=== PATIENT | female | born 1990 | race Caucasian/White ===

== ENCOUNTER 2019-04-18 13:13 | Inpatient (IN) | payer OTHER ==
[~2019-04-18] VITALS: Ht 165.1 cm; Wt 56.0 kg
[~2019-04-18 13:13] MED LIST: HUMI SC; HUMI SQ; INSR; LANTI SQ
--- NOTE | 2019-04-18 13:26 | NUR ---
PER MEDIC MOTHER FOUND PT IN A MOTEL LOOKING LETHARGIC. PER MEDIC BG OVER 500. PER MEDIC PT STS THAT PT IS NOT COMPLIANT WITH MEDICATIONS. PER PT SHE FEELS DIZZY WITH NAUSEA AND VOMITING. PT ADMITS NOT TAKING MEDICATIONS DUE TO NOT BEING ABLE TO GET THEM. PT IS ACTIVELY VOMTING. PER MEDIC 350CC BOLUS. PT IS ALERT AND ORIENTED, WITH LETHARGIC SPEACH. NOTED WOUND ON BOTTOM OF RIGHT FOOT. PER MEDIC 20G LT AC. PT STS SHE DENIES ALCOHOL OR DRUG USE. DR. HOANG AT BEDSIDE FOR MSE. PT STS SHE IS HAVING "ALL OVER PAIN", GENERALIZED ABDOMINAL PAIN. VSS. RESP E/U. NO DISTRESS NOTED. WILL CONTINUE TO MONITOR.
[2019-04-18 14:05] LABS: BASOPHIL % 0.4 % (0-2)
[2019-04-18 14:06] LABS: RED CELL DISTRIBUTION WIDTH 21.9 % (11.5-14.5)
[2019-04-18 14:08] LABS: PLATELET COUNT 549 x10^3mcL (130-400)
[2019-04-18 14:17] LABS: ALKALINE PHOSPHATASE 137 U/L (46-116); ALT/SGPT 13 U/L (14-59); AST/SGOT 8 U/L (15-37); BILIRUBIN TOTAL 0.44 mg/dL (0.20-1.00); CARBON DIOXIDE 11.6 mmol/L (21-32); CHLORIDE SERUM 99 mmol/L (98-107); CREATININE SERUM 0.7 mg/dL (0.6-1.0); GFR1 > 60 mL/min; LIPASE 149 IU/L (73-393); POTASSIUM SERUM 4.4 mmol/L (3.5-5.1); SODIUM SERUM 132 mmol/L (136-145)
[2019-04-18 14:23] LABS: ALBUMIN 1.5 g/dL (3.4-5.0); TOTAL PROTEIN, SERUM 5.2 g/dL (6.4-8.2)
[2019-04-18 14:24] LABS: GLUCOSE SERUM 486 mg/dL (74-106)
--- NOTE | 2019-04-18 14:49 | NUR ---
PT RETURNED FROM CT.
--- NOTE | 2019-04-18 15:40 | NUR ---
PT IN POSITION OF COMFORT. PT EADSLIY AROUSABLE. RESP E/U. PT STS SHE IS JUST TIRED. VSS. WILL CONTINUE TO MONITOR. MEDICATED ORDERED.
--- NOTE | 2019-04-18 16:00 | NUR ---
BG 359 DR. HOANG MADE AWARE. VSS. NO DSITRESS NOTED. RESP E/U. WILL CONTINUE TO MONITOR.
--- NOTE | 2019-04-18 16:53 | NUR ---
EKG IN PROGRESS. REPORT GIVEN TO NEDA OLIVER TO ASSUME CARE OF PT.
--- NOTE | 2019-04-18 17:05 | NUR ---
TELEPHONED IPG'S EXCHANGE AND LEFT MESSAGE FOR DR WOOD FOR RETURN CALL.
--- NOTE | 2019-04-18 17:07 | NUR ---
SPOKE WITH DR WOOD REGARDING ADMISSION ORDERS. DR WOOD STATED THAT HE IS WORKING ON THEM. WILL AWAIT NEW ORDERS.
--- NOTE | 2019-04-18 17:14 | NUR ---
PT TAKEN TO ICU WITH MELODY FRANKLIN EMT. VSS.
--- NOTE | 2019-04-18 17:30 | NUR ---
RC'D PT FROM ED VIA [facility] WITH NURSE PRESENT AT BEDSIDE. PT A/A/O/X4, SPEECH SLOW. PT REPORTS SLIGHT PECK/DIZZINESS. PT LETHARGIC BUT RESPONDS TO VERBAL COMMANDS AND ABLE TO MAKE NEEDS KNOWN. NO EENT DRAINAGE NOTED. RESPIRATIONS EQUAL AND UNLABORED. LUNGS CTA. ON RA, DENIES SOB. O2 SAT 100%, NO RESP DISTRESS. SINUS TACH ON RAND CEMENTER. S1S2 AUSCULTATED. PT DENIES CP. RC'D PT ON INSULIN DRIP INFUSING HUMULIN R @5.5 PER PROTOCOL, WILL ADJUST DRIP ACCORDINGLY PER ACCUCHECKS AND PROTOCOL. PALP PULSEA, NO EDEMA NOTED. CAP REFILL <3. GENERALIZED WEAKNESS, LETHARGIC. ABDOMEN FLAT AND SOFT. HYPOACTIVE BS. PT REPORTED NAUSEA PRIOR TO ARRIVAL TO ICU FLOOR AND RC'D ZOFRAN IVP, DENIES NAUSEA/EMESIS AT THIS TIME. LAST BM EARLIER THIS AM, NORMAL FOR PT. PT VOIDS FREELY, DENIES BURNING WITH URINATION. OPEN WOUND NOTED TO NATHAN ALICEA. BED IN LOWEST POSITION. CALL LIGHT IN REACH. WILL CONT TO MONITOR
[2019-04-18 18:06] VITALS: BP 90/53
[2019-04-18 18:12] LABS: FREE T4 1.22 ng/dL (0.76-1.46); FREE THYROXINE INDEX 2.5 ug/dL (1.4-4.5); T4(THYROXINE) 6.8 ug/dL (4.7-13.3)
[2019-04-18 18:15] LABS: T3 TOTAL 0.76 ng/mL
--- NOTE | 2019-04-18 18:21 | NUR ---
BS 170, ADJUSTED INSULIN DRIP INFUSING HUMULIN R TO 1UNIT/HR PER PROTOCOL. WILL CONT TO MONITOR
--- NOTE | 2019-04-18 18:37 | NUR ---
DR WOOD PRESENT AT BEDSIDE TO SEE PT. UPDATED ON CURRENT STATUS. AWAITING NEW ORDERS AT THIS TIME
--- NOTE | 2019-04-18 19:02 | NUR ---
ADJUSTED INSULIN DRIP HUMULIN R PER PROTOCOL. INSULIN DRIP CURRENTLY INFUSING AT 0.05UNITS/KG/HR. PER PROTOCOL D51/2 NS INFUSING @200. WILL ENDORSE TO TUBE SPLICER RN
--- NOTE | 2019-04-18 19:16 | NUR ---
REPORT GIVEN TO CULLET TRUCKER RN. ALL QUESTIONS AND CONCERNS ADDRESSED.
[2019-04-18 19:19] VITALS: BP 94/47
[2019-04-18 19:57] LABS: CALCIUM 6.8 mg/dL (8.5-10.1); CARBON DIOXIDE 10.6 mmol/L (21-32); CHLORIDE SERUM 110 mmol/L (98-107); CREATININE SERUM 0.7 mg/dL (0.6-1.0); GFR1 > 60 mL/min; GLUCOSE SERUM 199 mg/dL (74-106); MAGNESIUM 2.1 mg/dL (1.8-2.4); POTASSIUM SERUM 4.2 mmol/L (3.5-5.1); SODIUM SERUM 136 mmol/L (136-145)
--- NOTE | 2019-04-18 22:07 | NUR ---
RECIEVED REPORT FROM MELODY ALICEA. NURSING UPDATES. POC DISCUSSED. PT A&OX4. SPEECH CLEAR AND APPRORIATE. FOLLOWS COMMANDS. EENT FREE OF DISCHARGE. BREATHING E/U. LUNG SOUNDS CLEAR JARAD. O2 SAT 99% ON RA. NSR. DENIES CP. PULSES STRONG BUE&BLE. CAP REFILL < 3 SEC. SKIN WARM AND DRY. D5 1/2 NS @ 100ML/HR. PT AMBULATORY. CCHO DIET. ABD SOFT AND TENDER. BS ACTIVE X4Q. VOIDS FREELY. RLE WOUND. CALM AND COOPERATIVE.
[2019-04-18 23:18] VITALS: BP 87/54
[2019-04-19 00:33] LABS: CALCIUM 6.7 mg/dL (8.5-10.1); CARBON DIOXIDE 19.2 mmol/L (21-32); CHLORIDE SERUM 108 mmol/L (98-107); CREATININE SERUM 0.7 mg/dL (0.6-1.0); GFR1 > 60 mL/min; GLUCOSE SERUM 169 mg/dL (74-106); PHOSPHOROUS 1.7 mg/dL (2.5-4.9); POTASSIUM SERUM 3.7 mmol/L (3.5-5.1); SODIUM SERUM 140 mmol/L (136-145)
[2019-04-19 03:11] VITALS: BP 103/70
--- NOTE | 2019-04-19 04:00 | NUR ---
INSIDE OUTSIDE SALES REPRESENTATIVE @ BEDSIDE.
[2019-04-19 04:55] LABS: CALCIUM 6.8 mg/dL (8.5-10.1); CARBON DIOXIDE 20.5 mmol/L (21-32); CHLORIDE SERUM 108 mmol/L (98-107); CREATININE SERUM 0.7 mg/dL (0.6-1.0); GFR1 > 60 mL/min; GLUCOSE SERUM 204 mg/dL (74-106); MAGNESIUM 1.9 mg/dL (1.8-2.4); PHOSPHOROUS 1.6 mg/dL (2.5-4.9); POTASSIUM SERUM 3.1 mmol/L (3.5-5.1); SODIUM SERUM 139 mmol/L (136-145)
--- NOTE | 2019-04-19 05:26 | NUR ---
PT RESTING CALMLY IN BED. COOPERATIVE AND CALM. NO ACUTE CHANGES.
--- NOTE | 2019-04-19 07:22 | NUR ---
REPORT GIVEN TO MELODY BRITO. NURSING UPDATES. POC DISCUSSED. DARYL RESUMED CARE OF PT.
--- NOTE | 2019-04-19 07:23 | NUR ---
RECEIVED REPORT FROM OFELIA OLIVER. ALL QUESTIONS ANSWERED AND ADDRESSED. WILL RESUME CARE OF PT.
[2019-04-19 07:25] VITALS: BP 92/62
[2019-04-19 08:37] LABS: CALCIUM 7.2 mg/dL (8.5-10.1); CARBON DIOXIDE 20.3 mmol/L (21-32); CHLORIDE SERUM 107 mmol/L (98-107); CREATININE SERUM 0.7 mg/dL (0.6-1.0); GFR1 > 60 mL/min; GLUCOSE SERUM 159 mg/dL (74-106); MAGNESIUM 2.1 mg/dL (1.8-2.4); PHOSPHOROUS 1.5 mg/dL (2.5-4.9); POTASSIUM SERUM 3.4 mmol/L (3.5-5.1); SODIUM SERUM 138 mmol/L (136-145)
--- NOTE | 2019-04-19 08:50 | NUR ---
TELEPHONED DR WOOD TO REPORT PATIENT'S LABS. LEFT MESSAGE WITH EXCHANGE FOR RETURN CALL.
--- NOTE | 2019-04-19 09:00 | NUR ---
SPOKE WITH DR WOOD AND PROVIDED PATIENT UPDATE. TELEPHONE ORDERS RECEIVED AND READ BACK. WILL CARRY OUT ORDERS.
--- NOTE | 2019-04-19 09:05 | NUR ---
SPOKE WITH PATIENT REGARDING RESUMING LONG ACTING INSULIN. PER PATIENT, HER MEDICATION REGIME IS: LANTUS 20 UNITS SQ IN AM AND HUMALOG 50/50 20 UNITS IN THE AM. DARYL OLIVER AT BEDSIDE TO VERIFY.
--- NOTE | 2019-04-19 10:45 | NUR ---
REPORT GIVEN TO SERGIO OLIVER. PT WILL BE GOING TO ROOM 221-A VIA WHEELCHAIR.
--- NOTE | 2019-04-19 11:02 | NUR ---
PATIENT BEING TRANSFERRED TO ROOM 221A. PATIENT PLACED ON TELE MONITOR AND SELF AMBULATED TO WHEELCHAIR WITHOUT INCIDENT. PATIENT TRANSFERRED VIA WHEELCHAIR WITH ALL HER PERSONAL BELONGINGS. ATTEMPT MADE TO CONTACT MOTHER HALLEY AT . VOICEMAIL BOX WAS FULL. UNABLE TO LEAVE MESSAGE.
--- NOTE | 2019-04-19 11:05 | NUR ---
RECEIVED PATIENT FROM ICU FROM DARYL OLIVER. PATIENT ABLE TO AMBULATE FROM WHEELCHAIR TO BED WITH STEADY GAIT. PATIENT A/O X4 AND ABLE TO MAKE NEEDS KNOWN. PATIENT IS DROWSY BUT PATIENT ABLE TO FOLLOW COMMANDS. DENIES HEADACHE/DIZZINESS AT THIS TIME. PATIENT REPORTS POOR VISION IN LEFT EYE. BREATHING EVEN AND UNLABORED. CLEAR LUNG SOUNDS WITH NO RESPIRATORY DISTRESS OR DISCOMFORT NOTED. PATIENT DENIES SHORTNESS OF BREATH. TELE [address], BUT PATIENT DENIES CHEST PAIN/PRESSURE AT THIS TIME. PULSES PALPABLE. TRACE EDEMA NOTED TO BLE. BOWEL SOUNDS ACTIVE X4. PATIENT DENIES ABD PAIN, NAUSEA, VOMITING. VOIDS FREELY WITH NO C/O BURNING/DISCOMFORT. WOUND NOTED TO BOTTOM OF RIGHT FOOT, NATHAN. IV TO LAC AND RFA PATENT AND INTACT. ALL QUESTIONS AND CONCERNS ADDRESSED. ALL NEEDS ATTENDED TO. WILL CONTINUE TO MONITOR
--- NOTE | 2019-04-19 11:45 | NUR ---
PATIENT'S MOTHER HALLEY RETURNED TELEPHONE CALL TO ICU. MOTHER INFORMED OF PATIENT TRANSFER.
[2019-04-19 12:13] VITALS: BP 105/54
--- NOTE | 2019-04-19 12:30 | NUR ---
PATIENT BLOOD SUGAR 255 AT THIS TIME. 9 UNITS OF INSULIN COVERAGE REQUIRED. ALL NEEDS ATTENDED TO. WILL CONTINUE TO MONITOR
--- NOTE | 2019-04-19 13:15 | NUR ---
PATIENT C/O ABD PAIN AT THIS TIME. PATIENT MEDICATED WITH NORCO PO PRN AT THIS TIME. PATIENT TOLERATED MEDICATION WELL. NO ADVERSE EFFECTS NOTED. ALL NEEDS ATTENDED TO. WILL CONTINUE TO MONITOR
--- NOTE | 2019-04-19 16:45 | NUR ---
PATIENT BLOOD SUGAR 137 AT THIS TIME. NO INSULIN COVERAGE REQUIRED. ALL NEEDS ATTENDED TO. WILL CONTINUE TO MONITOR
[2019-04-19 17:29] LABS: BASOPHIL % 0.4 % (0-2)
[2019-04-19 17:30] LABS: PLATELET COUNT 500 x10^3mcL (130-400); RED CELL DISTRIBUTION WIDTH 22.6 % (11.5-14.5)
[2019-04-19 18:01] LABS: rbc morphology (normal/abnorm) ABNORMAL (NORMAL)
[2019-04-19 18:20] VITALS: BP 129/94
--- NOTE | 2019-04-19 18:30 | NUR ---
PATIENT RESTING COMFORTABLY IN BED AT THIS TIME. NO APPARENT DISTRESS OR DISCOMFORT NOTED. IV PATENT AND INTACT. ALL QUESTIONS AND CONCERNS ADDRESSED. ALL NEEDS ATTENDED TO. SAFETY PRECAUTIONS MAINTAINED. WILL ENDORSE ALL CARE TO PHOTOGRAPHIC PROCESS SCREEN MAKER NURSE.
--- NOTE | 2019-04-19 19:30 | NUR ---
RECEIVED PT RESTING IN BED, NO ACUTE DISTRESS NOTED. PT DROWSY BUT EASY TO AROUSE. AOX4, DENIES PECK/DIZZINESS. TELE #8, ST 112. DENIES CP. PULSES PALPABLE BILAT, TRACE EDEMA BLE. RESP EVEN AND UNLABORED ON RA, DENIES SOB. ABD SOFT, FLAT, DENIES ABD PAIN. PT REPORTS LARGE APPETITE. DENIES DYSURIA. AMBUALTORY. 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 DENIES PAIN. IV SITE TO THE LAC/RFA PATENT, NS @ 50ML/HR. NO REDNESS, SWELLING OR PAIN NOTED. ALL COMFORT AND SAFETY MEASURES PROVIDED FOR, CALL LIGHT WITHIN REACH, BED IN LOWST POSITION, WILL CONTINUE TO MONITOR.
[2019-04-19 21:47] VITALS: BP 93/51
--- NOTE | 2019-04-19 23:59 | NUR ---
PAGED DR WOOD FROM [facility] D/T PT IS AN ICU TRANSFER AND STILL ON ACCUCHECKS Q4HR. PROVIDED PT WITH REG HUM INSULIN 15 UNITS FOR A BLOOD SUGAR OF 373 AT 2100, RECHECKED PT BLOOD SUGAR= 265, PER DR. WOOD, PUT IN ORDER FOR LANTUS 10 UNITS NOW AND MEDICATE PER THE SLIDING SCALE. ALSO, RECIEVED PHONE ORDERS TO CONTINUE TOBRAMYCIN 0.3% OPHTHALMIC EYE DROPS (1 GTT Q4H). OMEPRAZOLE 20MG CAP (1CAP BID PRN STOMACH PAINS), FERROUS SULFATE 325MG PO (1 TAB TID). INFORMED DR WOOD THAT PT HAS A BAG OF THESE MEDICATIONS WITH PRESCRIPTIONS SHE HAS BEEN TAKING WITHOUT THE KNOWLEDGE OF STAFF. INFORMED PT NOT TO TAKE HER HOME MEDS SINCE WE CAN PROVIDE THE HOSPITAL EQUIVILANT AND SHE CAN SAFE HER MEDS FOR HOME TAKING. DR. WOOD UPDATED ON PLAN OF CARE, WILL IMPUT THESE ORDERS FOLLOWS.
--- NOTE | 2019-04-20 05:15 | NUR ---
PT RESTED IN INTERVALS DURING SHIFT, NO ACUTE CHANGES OCCURING OVERNIGHT. PT HAS TWO EPISODES OF INCONTINENCE (BM IN BED) PT WAS CLEANED AND RETURNED BACK TO BED. HAD LARGE APPETITE STILL REQUESTING FOOD AFTER HAVING BOWEL MOVEMENT IN BED AND FLOODING TOILET. 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 PT VERBALIZES UNDERSTANDING, WILL CONTINUE TO ENFORCE. PT BLOOD SUGAR STABLE THIS MORNING, 111. NO COVERAGE NEEDED THIS AM. PT REMAINS ON ACCUCHECKS Q4H, WILL ENDORSE TO DAYSHIFT, ALL COMFORT AND SAFETY MEASURES PROVIDED FOR, CALL LIGHT WITHIN REACH, BED IN LOWEST POSITION, WILL COTNINUE TO MONITOR.
[2019-04-20 05:37] VITALS: BP 100/60
[2019-04-20 06:33] LABS: BASOPHIL % 1.5 % (0-2)
[2019-04-20 06:53] LABS: CARBON DIOXIDE 25.2 mmol/L (21-32); CHLORIDE SERUM 104 mmol/L (98-107); CREATININE SERUM 0.4 mg/dL (0.6-1.0); GFR1 > 60 mL/min; GLUCOSE SERUM 95 mg/dL (74-106); MAGNESIUM 1.8 mg/dL (1.8-2.4); POTASSIUM SERUM 3.6 mmol/L (3.5-5.1); SODIUM SERUM 140 mmol/L (136-145)
--- NOTE | 2019-04-20 07:15 | NUR ---
RECEIVED PT FROM SHAKER PLATE OPERATOR. PT AWAKE, ALERT A/OX4. PT ON TELE 8, DENIES CHEST PAIN. PT REPORTS HEADACHE 04/21, WILL MEDICATE PRN. PT ON ROOM AIR WITH NO RESP DISTRESS NOTED. LUNGS CTA. PERIPHERAL PULSES PALPABLE, NO EDEMA NOTED. IV ACCESS LAC/RFA CDI INFUSING NS AT 50ML/HR. ACTIVE BS NOTED. PT REPORTS LOOSE STOOL. PT AMBULATORY. SAFETY MEASURES IN PLACE, BED LOW AND LOCKED, CALL LIGHT WITHIN REACH.
[2019-04-20 07:57] LABS: RED CELL DISTRIBUTION WIDTH 21.4 % (11.5-14.5)
[2019-04-20 07:58] LABS: PLATELET COUNT 503 x10^3mcL (130-400)
--- NOTE | 2019-04-20 08:31 | NUR ---
DUE MEDS ADMINISTERED. PT BLOOD SUGAR 250, PER PHARMACY ONLY GIVE LANTUS AND COVERAGE. DO NOT GIVE 50/50, MED HELD. WILL CLARIFY WITH DR. LANDA ADMINISTERED ORDERED FOR HEADACHE 04/21. WILL MONITOR.
[2019-04-20 08:34] LABS: rbc morphology (normal/abnorm) ABNORMAL (NORMAL)
[2019-04-20 08:35] VITALS: BP 99/53
[2019-04-20 08:46] VITALS: Ht 165.1 cm; Wt 56.0 kg
--- NOTE | 2019-04-20 10:54 | NUR ---
PT SLEEPING AT THIS TIME WITH NO ACUTE DISTRESS OR DISCOMFORT NOTED.
[2019-04-20 13:19] VITALS: BP 107/77
--- NOTE | 2019-04-20 15:17 | NUR ---
Initial Nutrition Assessment: (221T-A) CYNDEE CAMPA 28F Dx: DKA, Severe Dehydration PMHx: DM, genital herpes, hyponatremia PSHx: None noted Labs: Cr 0.4 L, Alb 1.5 L, Ca 8.0 L, AST 8 L, ALT 13 L, Alk Ph 137 H, A1c 16 H Meds: Colace, Humalog, D50%, Humulin, Lantus, Prilosec, Pro-Amatine, Zofran Diet: 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 Visited pt bedside, pt states receives all meals and snacks between meals r/t always hungry, states has very fast metabolism. Pt also states she is homeless, but is fed at her grandma's home often. Pt admits lost ~6# x 1wk, unintentional. Pt also states has receives DM education in the past and monitors her BG, but states that she just needs to eat all the time r/t loses wt easily. Noted pt eating sandwich and ice chips and stating to nurse during interview w/ pt that she needs more food; states she eats everything on her trays and snacks. Provided and explained handout [facility] Type 2 Diabetes Nutrition Therapy and reviewed guidelines for following a [facility] diet, how many grams of CHO are in 1 food choice, portion sizes, and fiber intake, and appropriate examples of recommended and non-recommended food. Pt c/o diarrhea in the morning. Pt discussed during bed huddles, noted pt w/ wound to bottom R foot. Problem with: Diarrhea in the morning Problems with: Chewing: No Swallowing: No Current appetite: good Recent wt change: -6# x 1wk (per pt) %wt change: 4.7% (per pt) Vitamin/Supplement use: None Special diet at home: Regular Physical activity: N/A Nutrition education given (specify specific nutrition education and handout given): NCM Type 2 Diabetes Nutrition Therapy - review of CHO counting, portion sizes, fiber and protein intake, and appropriate examples of foods. Food-drug interactions? Education given? NCM Type 2 Diabetes Nutrition Therapy Estimated Nutritional Needs Based on current body weight (56 kg) Energy: 4493-6901 kcal/day (30-35 kcal/kg for maintenance, wound healing) Protein: 67-78 g/day (1.2-1.4 g/kg for maintenance, wound healing) Fluid: 3161-9934 mL/day (1 mL/kcal for DKA) or per MD Nutrition Diagnosis: Increased nutrient need r/t wound healing AEB wound bottom R foot. Intervention 1. Continue current plan of care and [facility] diet order 2. Add Manjinder QD r/t wound healing 3. Contacted Dr Díaz ([facility]) regarding recommendation(s), waiting on callback. Monitor/Evaluate Goal: PO intake at least 75% of estimated needs Monitor: PO intake, Labs, GI function F/U in 3-5 days as moderate risk 04/23-04/25
--- NOTE | 2019-04-20 15:17 | NUR ---
Recommendations: 1. Continue current plan of care and [facility] diet order 2. Add Manjinder QD r/t wound healing 3. Contacted Dr Díaz ([facility]) regarding recommendation(s), waiting on callback.
--- NOTE | 2019-04-20 15:27 | NUR ---
PHYSICAL THERAPY NOTE ATTEMPTED FOR PHYSICAL THERAPY EVAL. PATIENT REFUSED 2/2 ABDOMINAL PAIN. NSG AWARE
[2019-04-20 16:31] VITALS: BP 102/60
[2019-04-20] MEDS ORDERED: LANTUS SOLOS100 U/M1 SQ (17:10)
[2019-04-20 17:28] VITALS: BP 102/70
--- NOTE | 2019-04-20 17:30 | NUR ---
DISCHARGE ORDERS GIVEN. DR WOOD AT BEDSIDE WITH PATIENT ANSWERING ALL QUESTIONS.
--- NOTE | 2019-04-20 18:18 | NUR ---
DR WOOD ORDERED ONE TIME DOSE OF LANTUS TO BE GIVEN UPON DISCHARGE. PT REQUESTING PAIN PRESCRIPTION. DR DEAN AWARE, PER DR DEAN, NO ONE WILL GIVE PT PAIN PRESCRIPTION. PT REFUSING DISCHARGE AT THIS TIME. LANTUS 20UNITS NOT GIVEN AT THIS TIME DUE TO PATIENT REFUSING TO BE DISCHARGED.
--- NOTE | 2019-04-20 18:23 | NUR ---
PAGED DR DEAN TO MAKE AWARE PT REFUSING TO BE DISCHARGED. AWAITING CALL BACK.
--- NOTE | 2019-04-20 18:49 | NUR ---
PT STABLE AT THIS TIME. WILL CONTINUE TO MONITOR AND ENDORSE CARE TO COMBINE INSPECTOR.
--- NOTE | 2019-04-20 20:28 | NUR ---
PT CURRENTLY RESTING IN BED, NO ACUTE DISTRESS. A/O X4. REDNESS NOTED TO LEFT EYE, POOR VISION IN LEFT EYE. TELE #8 SHOWING SINUS TACHYCARDIA, DENIES CHEST PAIN. PULSES PALPABLE IN ALL EXTREMITIES, BLE TRACE EDEMA NOTED. LUNG SOUNDS CTA BILATERALLY, DENIES SOB. BOWEL SOUNDS ACTIVE, LAST BM 04/20/19, PT REPORTS LOOSE STOOLS AND ABD PAIN 04/21, WILL MEDICATE PER EMAR. AMBULATORY. 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 BOTH IV PATENT AND INTACT. BED IN LOWEST POSITION, SIDE RAILS UP X2, CALL LIGHT WITHIN REACH. WILL CONTINUE TO MONITOR.
--- NOTE | 2019-04-20 20:30 | NUR ---
PT REFUSING DISCHARGE, STATING SHE WILL LEAVE IN THE MORNING, DR DEAN MADE AWARE. WILL CONTINUE TO MONITOR.
[2019-04-20 21:19] VITALS: BP 100/72
--- NOTE | 2019-04-21 01:33 | NUR ---
PT CURRENTLY RESTING IN BED, NO ACUTE DISTRESS. PT STATES SHE ACCIDENTALLY PULLED OUT IV IN LAC. IV FOUND, CATHETER INTACT. WILL CONTINUE TO MONITOR.
[2019-04-21 05:53] VITALS: BP 117/76
--- NOTE | 2019-04-21 06:04 | NUR ---
PT AGREED TO DISCHARGE. DISCHARGE EDUCATION GIVEN, PT STATES SHE UNDERSTANDS THE INSTRUCTIONS. IV DC'D, CATHETER INTACT. TELE UNIT RETURNED TO FILM EXAMINER. PT AWAITING FAMILY FOR TRANSPORTATION.
== END 2019-04-21 06:45 | disposition home or self-care (01) | DRG 420 ==
LOC: ED 13:13 → IC 16:26 → DU 16:26 → IC 17:18 → DU 04-19 11:07
PROVIDERS: Emergency Medicine; ADMIT Internal Medicine Pulmonary Disease
DX: E11.10 Type 2 diabetes mellitus with ketoacidosis without coma (principal); L97.519 Non-pressure chronic ulcer of other part of right foot with unspecified severity; E11.621 Type 2 diabetes mellitus with foot ulcer; D64.9 Anemia, unspecified; E86.0 Dehydration; Z79.4 Long term (current) use of insulin; Z88.8 Allergy status to other drugs, medicaments and biological substances; Z91.19 Patient's noncompliance with other medical treatment and regimen; N20.0 Calculus of kidney
CPT/HCPCS: 36600; 82962; 84439; G0378; J1170; J1644; J1815; J1817; J2270; J2405; J3480; J3490; J7030

== ENCOUNTER 2019-08-28 18:16 | Emergency (ER) | payer OTHER ==
[~2019-08-28] VITALS: Ht 165.1 cm; Wt 57.2 kg
[~2019-08-28 18:16] MED LIST changes: +LANTUS SOLOS100 U/M1 SQ
[2019-08-28 19:29] VITALS: Ht 165.1 cm; Wt 57.2 kg
[2019-08-28 22:22] VITALS: BP 119/83
== END 2019-08-28 22:22 | disposition home or self-care (01) ==
LOC: ED 18:16
DX: K29.70 Gastritis, unspecified, without bleeding (principal); R14.1 Gas pain; E11.9 Type 2 diabetes mellitus without complications; Z88.1 Allergy status to other antibiotic agents; Z88.6 Allergy status to analgesic agent; Z88.2 Allergy status to sulfonamides

== ENCOUNTER 2019-09-01 17:10 | Emergency (ER) | payer OTHER ==
[~2019-09-01] VITALS: Ht 165.1 cm; Wt 62.6 kg
[2019-09-01 17:14] VITALS: Ht 165.1 cm; Wt 62.6 kg
[2019-09-01 18:11] VITALS: BP 121/75
== END 2019-09-01 18:11 | disposition home or self-care (01) ==
LOC: ED 17:10
DX: K60.2 Anal fissure, unspecified (principal); E11.9 Type 2 diabetes mellitus without complications; Z88.1 Allergy status to other antibiotic agents; Z88.2 Allergy status to sulfonamides

== ENCOUNTER 2019-09-13 20:46 | Inpatient (IN) | payer OTHER ==
[~2019-09-13] VITALS: Ht 165.1 cm; Wt 59.5 kg
[2019-09-13 21:13] VITALS: Ht 165.1 cm; Wt 59.5 kg
--- NOTE | 2019-09-13 21:16 | NUR ---
PT SENT BACK OUT TO [place] PT STATES THAT HER BP IS ALWAYS LOW. PTS BP CHECKED TWICE HYPOTENSIVE AT 88/55
--- NOTE | 2019-09-13 21:57 | NUR ---
AMBULATED TO THE RESTROOM WITH STEADT GAIT
--- NOTE | 2019-09-13 23:30 | NUR ---
MEDICATED PT PER MD ORDER, PT. TOLERATED WELL, SEE EMAR
[2019-09-13 23:31] LABS: PLATELET COUNT 381 x10^3mcL (130-400)
[2019-09-13 23:32] LABS: BASOPHIL % 0 % (0-2); RED CELL DISTRIBUTION WIDTH 20.1 % (11.5-14.5)
[2019-09-13 23:35] LABS: CALCIUM 8.5 mg/dL (8.5-10.1); CARBON DIOXIDE 25.4 mmol/L (21-32); CHLORIDE SERUM 91 mmol/L (98-107); CREATININE SERUM 1.1 mg/dL (0.6-1.0); GFR1 > 60 mL/min; GLUCOSE SERUM 408 mg/dL (74-106); SODIUM SERUM 125 mmol/L (136-145)
[2019-09-13 23:46] LABS: ALKALINE PHOSPHATASE 247 U/L (46-116); ALT/SGPT 57 U/L (14-59); AST/SGOT 23 U/L (15-37); BILIRUBIN TOTAL 0.2 mg/dL (0.20-1.00); C REACTIVE PROTEIN 0.2 mg/dL (<=0.9); TOTAL PROTEIN, SERUM 7.5 g/dL (6.4-8.2)
[2019-09-13 23:47] LABS: ALBUMIN 2.4 g/dL (3.4-5.0)
[2019-09-13 23:52] LABS: CK-MB < 0.5 ng/mL (0-3.6); CREATINE KINASE 27 U/L (26-192)
[2019-09-14 00:07] LABS: FREE T4 0.85 ng/dL (0.76-1.46); FREE THYROXINE INDEX 1.8 ug/dL (1.4-4.5); T4(THYROXINE) 5.6 ug/dL (4.7-13.3)
[2019-09-14 00:09] LABS: UA SPECIFIC GRAVITY <=1.005 (1.005-1.035); microscopic required? YES; urine erythrocyte TRACE (NEGATIVE)
[2019-09-14 00:18] LABS: ERYTHROCYTE SED RATE 89 mm/hr (0-20)
[2019-09-14 00:34] LABS: T3 TOTAL 0.7 ng/mL
--- NOTE | 2019-09-14 01:23 | NUR ---
PER. DR MAX GIVE BENADRYL FIRST, FOLLOWED BY ROCEPHIN, 5 MIN AND HOLD TO SEE IF PT HAS REACTION, IF NO REACTION, THEN PERSIST WITH THE REST TO INFUSE
--- NOTE | 2019-09-14 01:33 | NUR ---
PT DENIES REACTION FROM ROCEPHIN, DENIES SOB
--- NOTE | 2019-09-14 03:00 | NUR ---
RECEIVED PT FROM ED VIA LAMAR, ACCOMPANY BY ED NURSE. PT AAOX4, DENIES PECK/DIZZINESS. BREATHING EVEN AND UNLABORED ON NC 2L/MIN, NO SOB NOTED. IV LFA AND IV TO RH. PT AMBULATORY. TELE #32 ST HR 116. PT DENIES PRESSURE. REPORTS HAVING COUGH FOR THE PAST WEEK, CHEST DISCOMFORT DUE TO COUGHING. LAST BM 09/14/19, ABD SOFT/ROUND, ACTIVE BOWEL SOUNDS. PT VOIDS FREELY, DENIES PAINFUL/BURNING URINATION. RIGHT KNEE WRAPPED WITH BANDAGE, PER PT DOES NOT WANTED REMOVED, DENIES WOUND. S/P FALL 2 DAYS AGO, PER PT SHE GOT LEG CRAMPS AND FELL DOWN. PT HAS RIGHT FOOT WOUND, PER PT SHE STEEPED ON A PIECE OF GLASS 5 YEARS AGO AND ABOUT 6 MONTHS AGO THE GLASS FELL OUT ON ITS OWN. DROPLET PRECAUTIONS IN PLACE. CALL BUTTON WITHIN REACH. SAFETY PRECAUTIONS IN PLACE. WILL CONTINUE TO MONITOR AND MEDICATE PER EMAR.
--- NOTE | 2019-09-14 03:04 | NUR ---
PT TRANSFERRED TO TELE BED 208B VIA RPEPPERELL ON WEIGHMASTER LEAD, RN JOHN PAUL AND EMT KRISHNA AT PT SIDE. PT A&OX4,NO ACUTE DSITRESS NOTED, RESP EVEN AND UNLABORED, TRANSFERRED WITHOUT INCIDENT.
[2019-09-14 03:19] VITALS: BP 129/90
[2019-09-14 06:05] VITALS: BP 119/84
[2019-09-14 06:31] LABS: PLATELET COUNT 334 x10^3mcL (130-400)
--- NOTE | 2019-09-14 06:40 | NUR ---
PT BLOOD SUGAR THIS AM 480, RECHECKED RESULT OF 481. PT ASYMPTOMATIC. INSULIN COVERAGE PER SLIDING SCALE. RECHECKED BLOOD SUGAR, RESULT OF 411. DR DEAN PAGED, AWAITING CALL BACK.
[2019-09-14 06:51] LABS: ALKALINE PHOSPHATASE 218 U/L (46-116); ALT/SGPT 50 U/L (14-59); AST/SGOT 33 U/L (15-37); BILIRUBIN TOTAL 0.2 mg/dL (0.20-1.00); CALCIUM 7.4 mg/dL (8.5-10.1); CARBON DIOXIDE 26.6 mmol/L (21-32); CHLORIDE SERUM 97 mmol/L (98-107); CREATININE SERUM 0.7 mg/dL (0.6-1.0); GFR1 > 60 mL/min; MAGNESIUM 1.9 mg/dL (1.8-2.4); SODIUM SERUM 130 mmol/L (136-145); TOTAL PROTEIN, SERUM 6.6 g/dL (6.4-8.2)
[2019-09-14 06:56] LABS: GLUCOSE SERUM 453 mg/dL (74-106)
[2019-09-14 07:03] LABS: BASOPHIL % 0 % (0-2); RED CELL DISTRIBUTION WIDTH 20.1 % (11.5-14.5)
--- NOTE | 2019-09-14 07:37 | NUR ---
PT AWAKE DENIES PAIN. NO ACUTE DISTRESS NOTED. CALL BUTTON WITHIN REACH. SAFETY PRECAUTIONS IN PLACE. ENDORSED CARE TO DAY SHIFT RN, ALL QUESTIONS ADDRESSED.
--- NOTE | 2019-09-14 08:00 | NUR ---
RECEIVED PATIENT SLEEPING, AROUSABLE. ORIENTED X4. TELE#32; SR-SR; HR = 96 NOW. DENIED PAIN NOW. NO SOB. BRAETHING SOUND CLEAR JARAD. O2 SAT 99% ON 2L VIA N/C. C/O SORE THROAT. INFLUENZA B (+). DROPLET ISOLATION. IVF OF NS 120CC/HR TO R HAND. IVHL'D TO LFA. AMBULATORY. DRY ULCER TO RT FOOT, FIELD ADMINISTRATOR. CALL LIGHT IN REACH.
[2019-09-14 08:47] VITALS: BP 103/71
--- NOTE | 2019-09-14 09:30 | NUR ---
DR. DEAN SAW PATIENT. NEW ORDER WRITTEN. IVF OF NS CHANGED TO 80CC/HR. PATIENT FINISHED 100% OF [facility] DIET BREAKFAST.
[2019-09-14 12:34] VITALS: BP 102/67
[2019-09-14 16:40] VITALS: BP 122/87
--- NOTE | 2019-09-14 18:50 | NUR ---
CONDITION IMPROVED. NO FEVER, NO CHILLY. TOLERATED CCHO DIET. NO N/V, HAD BM X2 THIS SHIFT. VID FREELY VIA BRP. ENDORSED CARE TO [facility] NURSE.
--- NOTE | 2019-09-14 19:20 | NUR ---
RECEIVED PT FROM DIANNE OLIVER. PT IS AAOX4 AND DENIES HEADACHE OR DIZZINESS AT THIS TIME. PT C/O SORE THROAT, BUT NO DIFFICULTY SWALLOWING OR EATING. PT IS ON TELE #32, ST WITH HR 105. PT DENIES CHEST PAIN OR PRESSURE AT THIS TIME. PT PULSES PALPABLE AND CAP REFILL <3 SEC. PT IS ON HEPARIN SQ. PT LUNG SOUNDS CTA ON 2LNC. PT DENIES SOB OR RESPIRATORY DISTRESS AT THIS TIME. PT ABD SOFT AND NONDISTENDED. PT BOWEL SOUNDS ACTIVE X4. PT DENIES N/V/D AT THIS TIME. PT VOIDS FREELY WITH BRP. PT IS AMBULATORY. PT S/P FALL AT HOME 09/12/2019. PT HAS RIGHT KNEE BANDAGED. RIGHT KNEE XRAY (-). PT HAS RIGHT FOOT ULCER, RN PERITONEAL DIALYSIS. PT IV's PATENT AND INTACT. CALL LIGHT WITHIN REACH. BED IN LOWEST POSITION. SIDE RAILS X2 UP. WILL CONTINUE TO MONITOR.
[2019-09-14 20:58] VITALS: BP 147/98
--- NOTE | 2019-09-14 22:34 | NUR ---
PT AWAKE AND WATCHING TV ON HER PHONE. NO ACUTE DISTRESS NOTED. PT IS CONSISTENTLY ASKING FOR SNACKS AND STATES SHE "LIKES MUNCHING ON SNACKS." PT REQUESTED ICE CHIPS AND CRACKERS. FLOUR BLENDER HELPER PROVIDED PT WITH SNACKS. CALL LIGHT WITHIN REACH. BED IN LOWEST POSITION. SIDE RAILS X2 UP. DROPLET PRECAUTIONS MAINTAINED. WILL CONTINUE TO MONITOR.
--- NOTE | 2019-09-14 23:50 | NUR ---
PT SLEEPING, BUT EASILY AROUSABLE. PT AMBULATED TO THE RESTROOM WITH STEADY GAIT. PT REQUESTING COFFEE, ICE CHIPS, AND CRACKERS. PT RETURNED TO BED AND IS WATCHING TV ON HER PHONE. CALL LIGHT WITHIN REACH. BED IN LOWEST POSITION. SIDE RAILS X2 UP. WILL CONTINUE TO MONITOR.
--- NOTE | 2019-09-15 01:07 | NUR ---
PT AWAKE AND REQUESTING FOR A PITCHER OF ICE CHIPS AND CRACKERS.
[2019-09-15 05:41] VITALS: BP 110/78
[2019-09-15 06:25] LABS: PLATELET COUNT 301 x10^3mcL (130-400)
--- NOTE | 2019-09-15 06:38 | NUR ---
PT SLEPT IN INTERVALS THROUGHOUT THE NIGHT. PT COMPLIED WITH NURSING CARE THROUGHOUT THE SHIFT. NO ACUTE DISTRESS NOTED DURING THE SHIFT. COMFORT AND SAFETY MEASURES MAINTAINED. ALL NEEDS AND CONCERNS ADDRESSED. WILL ENDORSE TO DAY SHIFT NURSE. WILL CONTINUE TO MONITOR.
[2019-09-15 06:43] LABS: BASOPHIL % 0 % (0-2); RED CELL DISTRIBUTION WIDTH 19.9 % (11.5-14.5)
[2019-09-15 06:51] LABS: ALKALINE PHOSPHATASE 154 U/L (46-116); ALT/SGPT 59 U/L (14-59); AST/SGOT 25 U/L (15-37); CALCIUM 7.8 mg/dL (8.5-10.1); CARBON DIOXIDE 30.2 mmol/L (21-32); CHLORIDE SERUM 99 mmol/L (98-107); CREATININE SERUM 0.4 mg/dL (0.6-1.0); GFR1 > 60 mL/min; GLUCOSE SERUM 131 mg/dL (74-106); POTASSIUM SERUM 3.4 mmol/L (3.5-5.1); SODIUM SERUM 136 mmol/L (136-145); TOTAL PROTEIN, SERUM 6.5 g/dL (6.4-8.2)
[2019-09-15 07:01] LABS: ALBUMIN 2.6 g/dL (3.4-5.0)
--- NOTE | 2019-09-15 07:13 | NUR ---
ENDORSED CARE TO DIANNE OLIVER. ALL QUESTIONS AND CONCERNS ADDRESSED.
--- NOTE | 2019-09-15 08:00 | NUR ---
SHIFT ASSESSMENT DONE. PATIENT A/A/OX4; TELE#32; SR; HR = 98. NO RESP DISTRESS ON RA; O2 SAT 98% ON RA. C/O SORE THROAT AND DRY COUGHING. INFLUENZA B (+). ON DROPLET ISOLATION. [facility] AND ASKED MORE FOOD. IVF OF NS 80CC/HR. IV SITES TO RH AND LFA INTACT. AMBULATORY. RT FOOT ULCER 2.5 X 2.5 CM. DRY, NO REDNESS. LABEL PRINTER. CALL LIGHT IN REACH.
[2019-09-15] MEDS ORDERED: NITROFURANTOIN100 MG PO (09:19)
[2019-09-15] MEDS ORDERED: TAM75 PO (09:19)
[2019-09-15 09:27] VITALS: BP 103/67
--- NOTE | 2019-09-15 09:45 | NUR ---
POTASSIUM 3.4. KCL 40 MEQ PO GIVEN PER ORDER.
[2019-09-15 11:30] VITALS: BP 103/67
[2019-09-15 12:37] VITALS: BP 107/72
--- NOTE | 2019-09-15 13:32 | NUR ---
D/C TO HOME PER ORDER. INSTRUCTION GI RAKESH. IV TO AND LFA D/C'D. BOTH OVER NEEDLE CATHTERS INTACT. CONDITION STABLE.
== END 2019-09-15 13:45 | disposition home or self-care (01) | DRG 720 ==
LOC: ED 20:46 → DU 09-14 00:48
PROVIDERS: Specialist; ADMIT Internal Medicine Pulmonary Disease
DX: A41.9 Sepsis, unspecified organism (principal); R65.21 Severe sepsis with septic shock; E44.0 Moderate protein-calorie malnutrition; E11.621 Type 2 diabetes mellitus with foot ulcer; L97.509 Non-pressure chronic ulcer of other part of unspecified foot with unspecified severity; E11.65 Type 2 diabetes mellitus with hyperglycemia; E87.1 Hypo-osmolality and hyponatremia; J11.1 Influenza due to unidentified influenza virus with other respiratory manifestations; N39.0 Urinary tract infection, site not specified; E86.0 Dehydration; E87.6 Hypokalemia; D64.9 Anemia, unspecified; Z79.4 Long term (current) use of insulin; Z88.8 Allergy status to other drugs, medicaments and biological substances; Z68.21 Body mass index [BMI] 21.0-21.9, adult
CPT/HCPCS: 36600; 82962; 84439; 87804; G0378; J0696; J1200; J1644; J1815; J2405; J3010; J3490; J7030; J7060; P9047; Q0092; Q0163